=== PATIENT | female | born 2000 | race Native Hawaiian/Other Pacific Islander ===

== ENCOUNTER 2021-10-18 12:17 | Emergency (ER) | payer OTHER ==
[~2021-10-18] VITALS: Ht 157.5 cm; Wt 77.6 kg
[2021-10-18 12:24] VITALS: TEMP 97.8
[2021-10-18 12:47] LABS: PLATELET COUNT 224 K/uL (152-353)
[2021-10-18 14:47] VITALS: BP 122/76
== END 2021-10-18 14:48 | disposition home or self-care (01) ==
LOC: ED 12:17
PROVIDERS: Emergency Medicine Emergency Medical Services
DX: O03.1 Delayed or excessive hemorrhage following incomplete spontaneous abortion (principal)
CPT/HCPCS: 81000; 84702; 85027; 96372; 99284; J1885

== ENCOUNTER 2021-10-19 03:38 | Emergency (ER) | payer OTHER ==
[~2021-10-19] VITALS: Ht 157.5 cm; Wt 77.6 kg
[2021-10-19 03:48] VITALS: TEMP 97.6
[2021-10-19 04:14] LABS: PLATELET COUNT 227 K/uL (152-353)
[2021-10-19 04:24] LABS: POTASSIUM 3.4 mmol/L (3.6-5.2)
[2021-10-19 04:32] LABS: PARTIAL THROMBOPLASTIN TIME 25.4 SECONDS (24.5-33.6)
[2021-10-19 07:20] VITALS: BP 106/56
== END 2021-10-19 07:30 | disposition short-term general hospital (02) ==
LOC: ED 03:38
PROVIDERS: Emergency Medicine Emergency Medical Services
DX: O03.1 Delayed or excessive hemorrhage following incomplete spontaneous abortion (principal); Z11.52 Encounter for screening for COVID-19
CPT/HCPCS: 36415; 80053; 85027; 85610; 85730; 87635; 96360; 96375; 99284; J1170; J2060; J2270; J2405; U0003